=== PATIENT | female | born 1960 ===

== ENCOUNTER 2023-09-07 07:04 | Outpatient (CLI) | payer SELFPAY ==
--- NOTE | 2023-09-07 08:18 | Ultrasound Report ---
PROCEDURE: Transvaginal INDICATIONS: POST MENOPAUSAL BLEEDING TECHNIQUE: Real-time endovaginal scanning was performed of the pelvic organs, with image documentation. COMPARISON: None. FINDINGS: Uterus: 12.7 x 9.1 x 9.1 cm. Overall enlarged uterus. Endometrial possible mass with solid cystic com ponents measuring 7 x 8 x 5 cm. Where not involved, the endometrium measures 5 mm. Overall anteverted positioning. Ovaries: Nonenlarged bilaterally. Other: No pathologic free fluid. IMPRESSION: Submucosal endometrial mass. Differential includes malignancy in the setting of postmenopausal bleedi ng. Background fibroids could also be present. MRI could better evaluate if further imaging is desire d. This was marked as a result for follow-up in PACS. Reviewed by: Dileep Elliott MD on 09/07/2023 8:17 AM PDT Approved by: Dileep Elliott MD on 09/07/2023 8:17 AM PDT Station ID: [id number]
== END 2023-09-07 07:05 | disposition home or self-care (01) ==
LOC: DI 07:04
PROVIDERS: ATTEND Naturopath
DX: N85.9 Noninflammatory disorder of uterus, unspecified (principal)